=== PATIENT | male | born 1980 | race Caucasian/White ===

== ENCOUNTER 2018-01-22 21:44 | Emergency (ER) | payer BC ==
--- NOTE | 2018-01-22 22:59 | ER ---
Nurse's Notes [facility] Name: Gonzales Prince Age: 37 yrs Sex: Male : 1980 Arrival Date: 01/22/2018 Time: 21:48 Bed 28 Private MD: Diagnosis: Lumbago with sciatica, unspecified side Presentation: 01/22 21:53 Presenting complaint: Patient states: lower back pain, worse in the morning, pt denies la1 trauma. Transition of care: patient was not received from another setting of care. Onset of symptoms was January 22, 2018. Risk Assessment: Do you want to hurt yourself or someone else? Patient reports no desire to harm self or others. Initial Sepsis Screen: Does the patient meet any 2 criteria? No. Patient's initial sepsis screen is negative. Does the patient have a suspected source of infection? No. Patient's initial sepsis screen is negative. Care prior to arrival: None. 21:53 Method Of Arrival: Ambulatory la1 21:53 Acuity: JONAS 3 la1 Historical: - Allergies: 21:54 No Known Allergies; la1 - PMHx: 21:54 None; la1 - Immunization history:: Adult Immunizations up to date. - Social history:: Smoking status: Patient/guardian denies using tobacco. - Ebola Screening: : No symptoms or risks identified at this time. Screenin:04 Abuse screen: Denies threats or abuse. Denies injuries from another. Nutritional rv screening: No deficits noted. Tuberculosis screening: No symptoms or risk factors identified. Fall Risk None identified. Assessment: 22:03 General: Appears in no apparent distress. comfortable, Behavior is calm, cooperative. rv Pain: Complains of pain in back Pain currently is 1 out of 10 on a pain scale. at worst was 8 out of 10 on a pain scale. Neuro: Level of Consciousness is awake, alert, obeys commands, Oriented to person, place, time, situation. Cardiovascular: Capillary refill < 3 seconds. Respiratory: Airway is patent. GI: No signs and/or symptoms were reported involving the gastrointestinal system. : No signs and/or symptoms were reported regarding the genitourinary system. EENT: No signs and/or symptoms were reported regarding the EENT system. Derm: Skin is intact. Musculoskeletal: No signs and/or symptoms reported regarding the musculoskeletal system. Vital Signs: 21:54 BP 160 / 100; Pulse 112; Resp 16; Temp 98.6(TE); Pulse Ox 100% on R/A; Weight 145.15 la1 kg; Height 6 ft. 4 in. (193.04 cm); 23:12 BP 128 / 85; Pulse 98; Resp 16 S; Pulse Ox 97% on R/A; Pain 1/10; rv 21:54 Body Mass Index 38.95 (145.15 kg, 193.04 cm) la1 ED Course: 21:48 Patient arrived in ED. al2 21:54 Triage completed. la1 21:55 Arm band placed on left wrist. la1 22:04 Patient has correct armband on for positive identification. Bed in low position. Call rv light in reach. Side rails up X 1. Pulse ox on. NIBP on. 22:08 Sari Weinberg FNP-C is PHCP. snw 22:08 Danish Craig MD is Attending Physician. snw 23:13 No provider procedures requiring assistance completed. Patient did not have IV access rv during this emergency room visit. Administered Medications: 23:11 Drug: TORadol 60 mg Route: IM; Site: left deltoid; rv 23:12 Follow up: Response: Medication administered at discharge. rv 23:11 Drug: Flexeril 10 mg Route: PO; rv 23:11 Follow up: Response: Medication administered at discharge. rv Outcome: 22:59 Discharge ordered by . snw 23:13 Discharged to home ambulatory. rv 23:13 Condition: good 23:13 Discharge instructions given to patient, Instructed on discharge instructions, follow up and referral plans. medication usage, Demonstrated understanding of instructions, follow-up care, medications, Prescriptions given X 2. 23:14 Patient left the ED. rv Signatures: Sari Weinberg FNP-C AQUATIC PERFORMER-Csnw Gareth Hearn RN RN [email or web address] Radha Flores alFish Cary RN RN rv
--- NOTE | 2018-01-22 23:00 | EDPHYS ---
Physician Documentation [facility] Name: Gonzales Prince Age: 37 yrs Sex: Male : 1980 Arrival Date: 01/22/2018 Time: 21:48 Bed 28 Private MD: ED Physician Danish Craig HPI: 01/22 23:01 This 37 yrs old Male presents to ER via Ambulatory with complaints of Back snw Pain. 23:01 The patient presents with pain that is acute. The symptoms are located in the low back. snw Onset: The symptoms/episode began/occurred gradually, 1 week(s) ago, and became persistent. bilateral thighs. Associated signs and symptoms: Pertinent negatives: dysuria, fever, urinary retention, weakness. The problem was sustained from unknown cause. Severity of symptoms: At their worst the symptoms were moderate. The patient has experienced similar episodes in the past. The patient has not recently seen a physician. Historical: - Allergies: 21:54 No Known Allergies; la1 - PMHx: 21:54 None; la1 - Immunization history:: Adult Immunizations up to date. - Social history:: Smoking status: Patient/guardian denies using tobacco. - Ebola Screening: : No symptoms or risks identified at this time. ROS: 22:57 Constitutional: Negative for fever, chills, and weight loss, Eyes: Negative for injury, snw pain, redness, and discharge, ENT: Negative for injury, pain, and discharge, Neck: Negative for injury, pain, and swelling, Cardiovascular: Negative for chest pain, palpitations, and edema, Respiratory: Negative for shortness of breath, cough, wheezing, and pleuritic chest pain, Abdomen/GI: Negative for abdominal pain, nausea, vomiting, diarrhea, and constipation, Back: Negative for injury. Intermittent back pain with radiation to legs in the past but post changing child's diaper, he twisted and felt lower back pain with radiation. It is worse in the mornings and it has lasted one week : Negative for injury, bleeding, discharge, and swelling, MS/Extremity: Negative for injury and deformity, Skin: Negative for injury, rash, and discoloration, Neuro: Negative for headache, weakness, numbness, tingling, and seizure, Psych: Negative for depression, anxiety, suicide ideation, homicidal ideation, and hallucinations. Exam: 22:56 Constitutional: This is a well developed, well nourished patient who is awake, alert, snw and in no acute distress. Head/Face: Normocephalic, atraumatic. Eyes: Pupils equal round and reactive to light, extra-ocular motions intact. Lids and lashes normal. Conjunctiva and sclera are non-icteric and not injected. Cornea within normal limits. Periorbital areas with no swelling, redness, or edema. ENT: Nares patent. No nasal discharge, no septal abnormalities noted. Tympanic membranes are normal and external auditory canals are clear. Oropharynx with no redness, swelling, or masses, exudates, or evidence of obstruction, uvula midline. Mucous membranes moist. Neck: Trachea midline, no thyromegaly or masses palpated, and no cervical lymphadenopathy. Supple, full range of motion without nuchal rigidity, or vertebral point tenderness. No Meningismus. Chest/axilla: Normal chest wall appearance and motion. Nontender with no deformity. No lesions are appreciated. Cardiovascular: Regular rate and rhythm with a normal S1 and S2. No gallops, murmurs, or rubs. Normal PMI, no JVD. No pulse deficits. Respiratory: Lungs have equal breath sounds bilaterally, clear to auscultation and percussion. No rales, rhonchi or wheezes noted. No increased work of breathing, no retractions or nasal flaring. Abdomen/GI: Soft, non-tender, with normal bowel sounds. No distension or tympany. No guarding or rebound. No evidence of tenderness throughout. Skin: Warm, dry with normal turgor. Normal color with no rashes, no lesions, and no evidence of cellulitis. MS/ Extremity: Pulses equal, no cyanosis. Neurovascular intact. Full, normal range of motion. Neuro: Awake and alert, GCS 15, oriented to person, place, time, and situation. Cranial nerves II-XII grossly intact. Motor strength 5/5 in all extremities. Sensory grossly intact. Cerebellar exam normal. Normal gait. Psych: Awake, alert, with orientation to person, place and time. Behavior, mood, and affect are within normal limits. 22:56 Back: pain, that is moderate, ROM is painful, CVA tenderness, is absent, muscle spasm, is not present. 22:56 Neuro: Exam negative for acute changes. Vital Signs: 21:54 BP 160 / 100; Pulse 112; Resp 16; Temp 98.6(TE); Pulse Ox 100% on R/A; Weight 145.15 la1 kg; Height 6 ft. 4 in. (193.04 cm); 23:12 BP 128 / 85; Pulse 98; Resp 16 S; Pulse Ox 97% on R/A; Pain 1/10; rv 21:54 Body Mass Index 38.95 (145.15 kg, 193.04 cm) la1 MDM: 22:11 Patient medically screened. snw 23:00 Data reviewed: vital signs, nurses notes. Data interpreted: Pulse oximetry: on room air snw is 100 %. Interpretation: normal. Counseling: I had a detailed discussion with the patient and/or guardian regarding: the historical points, exam findings, and any diagnostic results supporting the discharge/admit diagnosis, the presence of at least one elevated blood pressure reading (>120/80) during this emergency department visit, the need for outpatient follow up, to return to the emergency department if symptoms worsen or persist or if there are any questions or concerns that arise at home. Special discussion: I have referred the patient to see his PCP for further evaluation of high blood pressure. Based on the history and exam findings, there is no indication for further emergent testing or inpatient evaluation. I discussed with the patient/guardian the need to see the back specialist for further evaluation of the symptoms. I discussed with the patient/guardian the need to see the primary care provider for further evaluation of the symptoms. Administered Medications: 23:11 Drug: TORadol 60 mg Route: IM; Site: left deltoid; rv 23:12 Follow up: Response: Medication administered at discharge. rv 23:11 Drug: Flexeril 10 mg Route: PO; rv 23:11 Follow up: Response: Medication administered at discharge. rv Disposition: 23:16 Co-signature as Attending Physician, Danish Craig MD. pkl Disposition: 01/22/18 22:59 Discharged to Home. Impression: Lumbago with sciatica, unspecified side. - Condition is Stable. - Discharge Instructions: Back Pain, Adult, Sciatica, Back Exercises, [id number], Cryotherapy, Heat Therapy, Radicular Pain, Back Injury Prevention. - Prescriptions for Diclofenac Sodium 75 mg Oral Tablet Sustained Release - take 1 tablet by ORAL route 2 times per day; 30 tablet. orphenadrine citrate 100 mg Oral Tablet Sustained Release - take 1 tablet by ORAL route 2 times per day As needed; 20 tablet. - Medication Reconciliation Form, Thank You Letter, Antibiotic Education, Prescription Opioid Use form. - Follow up: Private Physician; When: 2 - 3 days; Reason: Recheck today's complaints, Continuance of care, Re-evaluation by your physician. Follow up: Emergency Department; When: As needed; Reason: Worsening of condition. Signatures: Danish Craig MD MD pkSari Helms, HOME WORKER-C HOME WORKER-Csnw Gareth Hearn RN RN la1 Fish Dempsey RN RN rv Corrections: (The following items were deleted from the chart) 23:14 22:59 01/22/2018 22:59 Discharged to Home. Impression: Lumbago with sciatica, rv unspecified side. Condition is Stable. Forms are Medication Reconciliation Form, Thank You Letter, Antibiotic Education, Prescription Opioid Use. Follow up: Private Physician; When: 2 - 3 days; Reason: Recheck today's complaints, Continuance of care, Re-evaluation by your physician. Follow up: Emergency Department; When: As needed; Reason: Worsening of condition. snw
[2018-01-22] MEDS ORDERED: KETOROLAC 30 MG/ML INJ ONE (23:11)
[2018-01-22] MEDS ORDERED: CYCLOBENZAPRINE 10 MG TAB ONE (23:11)
== END 2018-01-22 23:14 | disposition home or self-care (01) ==
LOC: ER 21:44
DX: M54.40 Lumbago with sciatica, unspecified side (principal)
CPT/HCPCS: 96372; 99283